=== PATIENT | female | born 1930 | race African-American/Black ===

== ENCOUNTER 2017-02-25 12:41 | Inpatient (IN) | payer MEDICARE, BC ==
[~2017-02-25] VITALS: Ht 152.4 cm; Wt 73.0 kg
[2017-02-25 13:17] LABS: BILIRUBIN,URINE NEGATIVE (NEG); GLUCOSE,URINE NEGATIVE (NEG); NITRITE,URINE NEGATIVE (NEG); PROTEIN,URINE NEGATIVE (NEG-TRACE); UROBILINOGEN,URINE 0.2 mg/dL (0.2 mg/dL)
[2017-02-25 13:38] LABS: BACTERIA,URINE 0 /HPF (0-FEW); SQUAMOUS EPITHELIAL CELL,UR MOD /LPF
--- NOTE | 2017-02-25 13:47 | PHYS DOC ---
Past Medical History Past Medical History: Dementia, GERD, Hypertension, Hypothyroid Past Surgical History: Hysterectomy, Tubal ligation, Other Additional Past Surgical Histo: THYROID SX x3, BILATERAL KNEE SX Alcohol Use: Occasionally Drug Use: None Adult General Chief Complaint Chief Complaint: ALTERED MENTAL STATUS HPI HPI Patient is a 86 year old female who presents to the emergency department for evaluation after having a possible syncopal episode. Immediately prior to arrival, the patient was found by staff to be unresponsive in her room. The patient initially did not respond to deep sternal rub for a few minutes, then staff notes that the patient was able to finally rales and initially had slurred speech. This resolved after they had called EMS who came to the patient' s room and found the patient slightly lethargic. By the time the patient arrived to the emergency department she is back at her baseline mental status. Of note, staff had found a small empty bottle of vodka next to the patient's room. The patient however has been awake and has been noted at her baseline mental status early this morning and even spoke with family approximately 1 hour prior to being found unresponsive. Patient is able to ambulate independently at baseline. The patient states that she drank the bottle of vodka last night which she states is usual for her and patient denies having any alcohol earlier this morning. The patient currently denies any chest pain, abdominal pain. Patient does not remember anything that led to her episode of unconsciousness. Review of Systems Review of Systems Constitutional: Denies fever or chills [] Eyes: Denies change in visual acuity, redness, or eye pain [] HENT: Denies nasal congestion or sore throat [] Respiratory: Denies cough or shortness of breath [] Cardiovascular: Syncope, denies chest pain or edema[] GI: Denies abdominal pain, nausea, vomiting, bloody stools or diarrhea [] : Denies dysuria or hematuria [] Musculoskeletal: Denies back pain or joint pain [] Integument: Denies rash or skin lesions [] Neurologic: Denies headache, focal weakness or sensory changes [] All other systems were reviewed and found to be within normal limits, except as documented in this note. Current Medications Current Medications Current Medications Medications (Trade) Dose Ordered Sig/Saúl Start Time Stop Time Status Last Admin Dose Admin Amlodipine Besylate (Norvasc) 5 mg 1X ONCE 02/25/17 14:15 02/25/17 14:16 DC 02/25/17 14:26 5 MG Allergies Allergies Allergies Coded Allergies Type Severity Reaction Last Updated Verified No Known Drug Allergies 02/25/17 No Physical Exam Physical Exam Constitutional: Well developed, well nourished, no acute distress, non-toxic appearance. [] HENT: Normocephalic, atraumatic, bilateral external ears normal, oropharynx moist, no oral exudates, nose normal. [] Eyes: PERRLA, EOMI, conjunctiva normal, no discharge. [] Neck: Normal range of motion, no tenderness, supple, no stridor. [] Cardiovascular:Heart rate regular rhythm, no murmur [] Lungs & Thorax: Bilateral breath sounds clear to auscultation [] Abdomen: Bowel sounds normal, soft, no tenderness, no masses, no pulsatile masses. [] Skin: Warm, dry, no erythema, no rash. [] Back: No tenderness, no CVA tenderness. [] Extremities: No tenderness, no cyanosis, no clubbing, ROM intact, no edema. [] Neurologic: Alert and oriented X 3, normal motor function, normal sensory function, no focal deficits noted. [] Current Patient Data Vital Signs Vital Signs Date Time Temp Pulse Resp B/P (MAP) Pulse Ox O2 Delivery O2 Flow Rate FiO2 02/25/17 14:54 92 20 95 02/25/17 14:26 169/79 02/25/17 12:53 97.6 Room Air 97.6 Lab Values Laboratory Tests Test 02/25/17 13:00 02/25/17 14:15 Urine Collection Type Unknown Urine Color Yellow Urine Clarity Clear Urine pH 7.0 Urine Specific [place] 1.010 Urine Protein Negative mg/dL (NEG-TRACE) Urine Glucose (UA) Negative mg/dL (NEG) Urine Ketones (Stick) Negative mg/dL (NEG) Urine Blood Negative (NEG) Urine Nitrite Negative (NEG) Urine Bilirubin Negative (NEG) Urine Urobilinogen Dipstick 0.2 mg/dL (0.2 mg/dL) Urine Leukocyte Esterase Negative (NEG) Urine RBC 1-2 /HPF (0-2) Urine WBC 1-4 /HPF (0-4) Urine Squamous Epithelial Cells Mod /LPF Urine Bacteria 0 /HPF (0-FEW) Urine Opiates Screen Neg (NEG) Urine Methadone Screen Neg (NEG) Urine Barbiturates Neg (NEG) Urine Phencyclidine Screen Neg (NEG) Urine Amphetamine/Methamphetamine Neg (NEG) Urine Benzodiazepines Screen Neg (NEG) Urine Cocaine Screen Neg (NEG) Urine Cannabinoids Screen Neg (NEG) Urine Ethyl Alcohol Neg (NEG) White Blood Count 8.9 x10^3/uL (4.0-11.0) Red Blood Count 5.08 x10^6/uL (3.50-5.40) Hemoglobin 13.6 g/dL (12.0-15.5) Hematocrit 43.0 % (36.0-47.0) Mean Corpuscular Volume 85 fL (79-100) Mean Corpuscular Hemoglobin 27 pg (25-35) Mean Corpuscular Hemoglobin Concent 32 g/dL (31-37) Red Cell Distribution Width 17.2 % (11.5-14.5) H Platelet Count 255 x10^3/uL (140-400) Neutrophils (%) (Auto) 61 % (31-73) Lymphocytes (%) (Auto) 29 % (24-48) Monocytes (%) (Auto) 8 % (0-9) Eosinophils (%) (Auto) 1 % (0-3) Basophils (%) (Auto) 1 % (0-3) Neutrophils # (Auto) 5.4 x10^3uL (1.8-7.7) Lymphocytes # (Auto) 2.6 x10^3/uL (1.0-4.8) Monocytes # (Auto) 0.7 x10^3/uL (0.0-1.1) Eosinophils # (Auto) 0.1 x10^3/uL (0.0-0.7) Basophils # (Auto) 0.1 x10^3/uL (0.0-0.2) Sodium Level 141 mmol/L (136-145) Potassium Level 3.5 mmol/L (3.5-5.1) Chloride Level 101 mmol/L (98-107) Carbon Dioxide Level 29 mmol/L (21-32) Anion Gap 11 (6-14) Blood Urea Nitrogen 24 mg/dL (7-20) H Creatinine 1.4 mg/dL (0.6-1.0) H Estimated GFR (Cockcroft-Gault) 43.2 BUN/Creatinine Ratio 17 (6-20) Glucose Level 100 mg/dL (70-99) H Calcium Level 9.1 mg/dL (8.5-10.1) Magnesium Level 2.1 mg/dL (1.8-2.4) Total Bilirubin 0.4 mg/dL (0.2-1.0) Aspartate Amino Transferase (AST) 21 U/L (15-37) Alanine Aminotransferase (ALT) 16 U/L (14-59) Alkaline Phosphatase 80 U/L (46-116) Creatine Kinase 78 U/L (26-192) Creatine Kinase MB (Mass) 0.9 ng/mL (0.0-3.6) Creatine Kinase MB Relative Index 1.2 % (0-4) Troponin I Quantitative < 0.017 ng/mL (0.000-0.055) SL-Mwo-K-Type Natriuretic Peptide 227 pg/mL (0-449) Total Protein 7.8 g/dL (6.4-8.2) Albumin 3.6 g/dL (3.4-5.0) Albumin/Globulin Ratio 0.9 (1.0-1.7) L Ethyl Alcohol Level < 10 mg/dL (0-10) Laboratory Tests 02/25/17 14:15 Laboratory Tests 02/25/17 14:15 EKG EKG Interpreted by me: Heart rate 86, sinus rhythm, left axis deviation, no acute ST elevations or depressions[] Radiology/Procedures Radiology/Procedures [facility] [address] [place] [address] IMAGING REPORT Signed PATIENT: LACI COY ACCOUNT: [id number] : 1930 LOCATION: ER AGE: 86 SEX: F EXAM STATUS: REG ER ORD. PHYSICIAN: LAURA GRIGGS MD REASON: syncope of unknown cause PROCEDURE: CT HEAD WO CONTRAST Indication: Syncope. Axial imaging through the brain was performed without contrast. The ventricles and sulci are consistent with the patient's age. Moderate periventricular hypodensity is noted consistent with senescent change. No sulcal effacement, midline shift or hemorrhage is seen. The cisterns are patent. Visualized paranasal sinuses are clear. Impression: Senescent changes. No acute intracranial process is detected. PQRS Compliance Statement: One or more of the following individualized dose reduction techniques were utilized for this examination: 1. Automated exposure control 2. Adjustment of the mA and/or kV according to patient size 3. Use of iterative reconstruction technique DICTATED and SIGNED BY: ENZO LAMA MD DATE: 02/25/17 7888 CC: LAURA GRIGGS MD; AUGUST ZAMBRANO ~ [facility] [address] [place] [address] IMAGING REPORT Signed PATIENT: LACI COY ACCOUNT: [id number] : 1930 LOCATION: ER AGE: 86 SEX: F EXAM STATUS: REG ER ORD. PHYSICIAN: LAURA GRIGGS MD REASON: syncope PROCEDURE: PORTABLE CHEST 1V Portable chest, 02/25/2017: History: Syncope Comparison is made to a study from 10/23/2005. The heart is mildly enlarged. There is calcific plaquing and tortuosity of the aorta. There is unchanged widening of the superior mediastinum on the right with an impression upon the right side of the trachea at the thoracic inlet. 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 Surgical clips are present in the thyroid region on the left. The pulmonary vascularity is normal. There is mild bilateral linear parenchymal scarring. No acute infiltrate is seen. There is no evidence of pleural fluid. There is mild chronic elevation of the right hemidiaphragm. There is a mild thoracic scoliosis. Degenerative changes are present both shoulders. IMPRESSION: 1. Cardiomegaly and aortic atherosclerosis. 2. Unchanged superior mediastinal widening of the right due to the patient's known goiter. 3. No acute cardiopulmonary abnormality is detected. DICTATED and SIGNED BY: JOSE GARCIA MD DATE: 02/25/17 1536 CC: LAURA GRIGGS MD; AUGUST ZAMBRANO ~ [] Course & Med Decision Making Course & Med Decision Making Pertinent Labs and Imaging studies reviewed. (See chart for details) The patient's blood work and radiographic imaging showed no clear etiology for the patient's episode. Due to patient's age and risk factors in addition to significantly elevated hypertension, the patient will need admission to the hospital for continued evaluation as well as treatment of blood pressure. The patient was started on oral Norvasc in the emergency department. I spoke with Dr. Lechuga who accepted care patient in hospital. A consult was placed to Dr. Mills to follow with patient in hospital. Dragon Disclaimer Dragon Disclaimer This electronic medical record was generated, in whole or in part, using a voice recognition dictation system. Departure Departure Impression: Primary Impression: Syncope Additional Impression: Accelerated hypertension Disposition: 09 ADMITTED INPATIENT Admitting Physician: Donna Lechuga Condition: GUARDED Problem Qualifiers Primary Impression: Syncope Syncope type: unspecified Qualified Codes: R55 - Syncope and collapse LAURA GRIGGS MD Feb 25, 2017 13:47
[2017-02-25 14:04] LABS: BARBITURATES NEG (NEG); BENZODIAZEPINES NEG (NEG); CANNABINOIDS NEG (NEG); COCAINE NEG (NEG); METHADONE NEG (NEG); OPIATES NEG (NEG); PHENCYCLIDINE NEG (NEG)
[2017-02-25] MEDS ORDERED: amLODIPine BESYLATE 5 MG TABLET PO ONE (14:15)
[2017-02-25 14:25] LABS: BASO # 0.1 x10^3/uL (0.0-0.2); BASO % 1 % (0-3); EOS % 1 % (0-3); HEMOGLOBIN 13.6 g/dL (12.0-15.5); LYMPH # 2.6 x10^3/uL (1.0-4.8); LYMPH % 29 % (24-48); MEAN CORPUSCULAR HEMOGLOBIN 27 pg (25-35); MEAN CORPUSCULAR HGB CONC 32 g/dL (31-37); MEAN CORPUSCULAR VOLUME 85 fL (79-100); MONO % 8 % (0-9); NEUT % 61 % (31-73); PLATELET COUNT 255 x10^3/uL (140-400); RED BLOOD COUNT 5.08 x10^6/uL (3.50-5.40); RED CELL DISTRIBUTION WIDTH 17.2 % (11.5-14.5); WHITE BLOOD COUNT 8.9 x10^3/uL (4.0-11.0)
[2017-02-25 14:36] LABS: CALCIUM 9.1 mg/dL (8.5-10.1); CREATININE 1.4 mg/dL (0.6-1.0); GFR 43.2; POTASSIUM 3.5 mmol/L (3.5-5.1)
[2017-02-25 14:43] LABS: ALBUMIN 3.6 g/dL (3.4-5.0); ALBUMIN/GLOBULIN RATIO 0.9 (1.0-1.7); MAGNESIUM 2.1 mg/dL (1.8-2.4); TOTAL BILIRUBIN 0.4 mg/dL (0.2-1.0); TOTAL PROTEIN 7.8 g/dL (6.4-8.2)
--- NOTE | 2017-02-25 14:49 | EKG ---
[facility] [address] [place] [address] Test Date: 2017-02-25 Test Time: 14:12:00 Pat Name: LACI COY Department: Room: Gender: F Exhibit Electrician: ABIGAIL : 1930 Requested By: LAURA GRIGGS Order Number: [id number] Reading MD: Jose Romero MD Measurements Intervals [place] Rate: 86 P: -63 IN: 122 QRS: -51 QRSD: 100 T: 65 QT: 370 QTc: 446 Interpretive Statements SUSPECT SR LAFB POOR R-WAVE PROGRESSION Electronically Signed On 03-06-2017 16:04:03 LABEL SEWER by Jose Romero MD
[2017-02-25 14:52] LABS: CKMB MASS 0.9 ng/mL (0.0-3.6)
--- NOTE | 2017-02-25 15:09 | RAD ---
Indication: Syncope. Axial imaging through the brain was performed without contrast. The ventricles and sulci are consistent with the patient's age. Moderate periventricular hypodensity is noted consistent with senescent change. No sulcal effacement, midline shift or hemorrhage is seen. The cisterns are patent. Visualized paranasal sinuses are clear. Impression: Senescent changes. No acute intracranial process is detected. PQRS Compliance Statement: One or more of the following individualized dose reduction techniques were utilized for this examination: 1. Automated exposure control 2. Adjustment of the mA and/or kV according to patient size 3. Use of iterative reconstruction technique
--- NOTE | 2017-02-25 15:15 | RAD ---
Portable chest, 02/25/2017: History: Syncope Comparison is made to a study from 10/23/2005. The heart is mildly enlarged. There is calcific plaquing and tortuosity of the aorta. There is unchanged widening of the superior mediastinum on the right with an impression upon the right side of the trachea at the thoracic inlet. 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 Surgical clips are present in the thyroid region on the left. The pulmonary vascularity is normal. There is mild bilateral linear parenchymal scarring. No acute infiltrate is seen. There is no evidence of pleural fluid. There is mild chronic elevation of the right hemidiaphragm. There is a mild thoracic scoliosis. Degenerative changes are present both shoulders. IMPRESSION: 1. Cardiomegaly and aortic atherosclerosis. 2. Unchanged superior mediastinal widening of the right due to the patient's known goiter. 3. No acute cardiopulmonary abnormality is detected.
[2017-02-25] MEDS ORDERED: ACETAMINOPHEN 325 MG TABLET. PO PRN (15:45)
[2017-02-25] MEDS ORDERED: ONDANSETRON PF 4 MG/2 ML VIAL. IV PRN ×2 (15:45→16:00)
[2017-02-25] MEDS ORDERED: diphenhydrAMINE HCL 25 MG CAPSULE PO PRN (16:00)
[2017-02-25] MEDS ORDERED: LABETALOL 20 MG/4 ML DISP.SYRIN. IVP PRN (16:00)
[2017-02-25] MEDS ORDERED: HYDROcodone/APAP 5/325MG 1 TAB TABLET PO PRN (16:00)
[2017-02-25 16:24] VITALS: BP 164/81
--- NOTE | 2017-02-25 16:47 | PDOC1 ---
History and Physical Date of Admission Date of Admission DATE: 02/25/17 TIME: 16:42 Identification/Chief Complaint Chief Complaint syncope in HCR Problems: Source Source: Caregiver, Chart review, Patient History of Present Illness History of Present Illness 86 yr old -[place] female who actually has very good ADLs and IADLs given for stated age, rehabbing at [facility] is about to discharge soon back to her own home. Was found in her room unresponsive to sternal rub her. No mention of hypoglycemia or any other altered labs at that time. Patient denies eating anything different prior to the episode. She does not currently remember details. All she knows that she was watching TV waiting for her right to go to some class activities during the day. The next thing she realizes that she is on her way to the hospital. There was no seizure-like activity, no noted bladder or stool incontinence on the scene. Labs here unremarkable except for slight creatinine 1.4 with a GFR of 43. Chest x-ray CT had otherwise unremarkable. Patient is admitted observation overnight to make sure no arrhythmias overnight given his age. Her only past medical history is hypothyroidism status post thyroidectomy on Synthroid and hypertension on unrecalled blood pressure pills. Past Medical History Cardiovascular: HTN Endocrine: Hypothyroidism Past Surgical History Past Surgical History: Other (thyroidectomy) Family History Family History: Family History Unknown Social History Smoke: No ALCOHOL: none Drugs: None Current Problem List Problem List Problems Medical Problems: (1) Accelerated hypertension Status: Acute (2) Syncope Status: Acute Problems: Current Medications Current Medications Current Medications Amlodipine Besylate (Norvasc) 5 mg 1X ONCE PO Last administered on 02/25/17t 14:26; Start 02/25/17 at 14:15; Stop 02/25/17 at 14:16; Status DC Ondansetron HCl (Zofran) 4 mg PRN Q8HRS PRN IV NAUSEA/VOMITING; Start 02/25/17 at 15:45; Stop 02/25/17 at 15:47; Status DC Acetaminophen (Tylenol) 650 mg PRN Q4HRS PRN PO FEVER; Start 02/25/17 at 15:45 ; Stop 02/26/17 at 15:44 Ondansetron HCl (Zofran) 4 mg PRN Q6HRS PRN IV NAUSEA/VOMITING; Start 02/25/17 at 16:00; Stop 02/26/17 at 15:59 Labetalol HCl (Normodyne) 10 mg PRN Q2HR PRN IVP HYPERTENSION, SEE COMMENTS; Start 02/25/17 at 16:00 Acetaminophen/ Hydrocodone Bitart (Lortab 5/325) 1 tab PRN Q4HRS PRN PO PAIN; Start 02/25/17 at 16:00 Diphenhydramine HCl (Benadryl) 25 mg PRN QHS PRN PO INSOMNIA; Start 02/25/17 at 16:00 Allergies Allergies: Coded Allergies: No Known Drug Allergies (Unverified , 02/25/17) ROS Review of System A 14 point ROS was completed with the following noted as positive: Other systems reviewed and negative. \CONSTITUTIONAL: No fever or chills EYES: No recent changes SKIN: No rash or itching CARDIOVASCULAR: No chest pain, syncope, palpitations, or edema RESPIRATORY: No SOB or cough GASTROINTESTINAL: No nausea, vomiting or abdominal pain NEUROLOGICAL: No headaches or weakness ENDOCRINE: No cold or heat intolerance GENITOURINARY: No urgency or frequency of urination MUSCULOSKELETAL: No back pain or joint pain LYMPHATICS: No enlarged lymph nodes PSYCHIATRIC: No anxiety or depression Physical Exam Physical Exam Physical Exam General: Alert, Oriented X3, Cooperative, No acute distress HEENT: Atraumatic, PERRLA Lungs: Normal air movement, Other (wheezy) Heart: S1S2, RRR, no thrills, no gallops, no murmurs Cardiovascular: S1, S2 Abdomen: Normal bowel sounds, Soft, No tenderness, No hepatosplenomegaly, No masses, Other (obese) Rectal Exam: not examined PELVIC: Nml ext genitalia Extremities: No rashes, no edema, pulses full and equal Skin: No rashes, No breakdown, No significant lesion Neuro: Normal gait, Normal speech, Strength at 5/5 X4 ext, Normal tone, Sensation intact, Cranial nerves 3-12 NL, Reflexes 2+ Psych/Mental Status: Mental status NL, Mood NL Vitals Vitals Vital Signs Date Time Temp Pulse Resp B/P (MAP) Pulse Ox O2 Delivery O2 Flow Rate FiO2 02/25/17 16:24 98.4 86 19 164/81 (108) 96 Room Air 98.4 Labs Labs Laboratory Tests Test 02/25/17 13:00 02/25/17 14:15 Urine Collection Type Unknown Urine Color Yellow Urine Clarity Clear Urine pH 7.0 Urine Specific [place] 1.010 Urine Protein Negative mg/dL (NEG-TRACE) Urine Glucose (UA) Negative mg/dL (NEG) Urine Ketones (Stick) Negative mg/dL (NEG) Urine Blood Negative (NEG) Urine Nitrite Negative (NEG) Urine Bilirubin Negative (NEG) Urine Urobilinogen Dipstick 0.2 mg/dL (0.2 mg/dL) Urine Leukocyte Esterase Negative (NEG) Urine RBC 1-2 /HPF (0-2) Urine WBC 1-4 /HPF (0-4) Urine Squamous Epithelial Cells Mod /LPF Urine Bacteria 0 /HPF (0-FEW) Urine Opiates Screen Neg (NEG) Urine Methadone Screen Neg (NEG) Urine Barbiturates Neg (NEG) Urine Phencyclidine Screen Neg (NEG) Urine Amphetamine/Methamphetamine Neg (NEG) Urine Benzodiazepines Screen Neg (NEG) Urine Cocaine Screen Neg (NEG) Urine Cannabinoids Screen Neg (NEG) Urine Ethyl Alcohol Neg (NEG) White Blood Count 8.9 x10^3/uL (4.0-11.0) Red Blood Count 5.08 x10^6/uL (3.50-5.40) Hemoglobin 13.6 g/dL (12.0-15.5) Hematocrit 43.0 % (36.0-47.0) Mean Corpuscular Volume 85 fL (79-100) Mean Corpuscular Hemoglobin 27 pg (25-35) Mean Corpuscular Hemoglobin Concent 32 g/dL (31-37) Red Cell Distribution Width 17.2 % (11.5-14.5) Platelet Count 255 x10^3/uL (140-400) Neutrophils (%) (Auto) 61 % (31-73) Lymphocytes (%) (Auto) 29 % (24-48) Monocytes (%) (Auto) 8 % (0-9) Eosinophils (%) (Auto) 1 % (0-3) Basophils (%) (Auto) 1 % (0-3) Neutrophils # (Auto) 5.4 x10^3uL (1.8-7.7) Lymphocytes # (Auto) 2.6 x10^3/uL (1.0-4.8) Monocytes # (Auto) 0.7 x10^3/uL (0.0-1.1) Eosinophils # (Auto) 0.1 x10^3/uL (0.0-0.7) Basophils # (Auto) 0.1 x10^3/uL (0.0-0.2) Sodium Level 141 mmol/L (136-145) Potassium Level 3.5 mmol/L (3.5-5.1) Chloride Level 101 mmol/L (98-107) Carbon Dioxide Level 29 mmol/L (21-32) Anion Gap 11 (6-14) Blood Urea Nitrogen 24 mg/dL (7-20) Creatinine 1.4 mg/dL (0.6-1.0) Estimated GFR (Cockcroft-Gault) 43.2 BUN/Creatinine Ratio 17 (6-20) Glucose Level 100 mg/dL (70-99) Calcium Level 9.1 mg/dL (8.5-10.1) Magnesium Level 2.1 mg/dL (1.8-2.4) Total Bilirubin 0.4 mg/dL (0.2-1.0) Aspartate Amino Transf (AST/SGOT) 21 U/L (15-37) Alanine Aminotransferase (ALT/SGPT) 16 U/L (14-59) Alkaline Phosphatase 80 U/L (46-116) Creatine Kinase 78 U/L (26-192) Creatine Kinase MB (Mass) 0.9 ng/mL (0.0-3.6) Creatine Kinase MB Relative Index 1.2 % (0-4) Troponin I Quantitative < 0.017 ng/mL (0.000-0.055) [id number]-[id number]-Type Natriuretic Peptide 227 pg/mL (0-449) Total Protein 7.8 g/dL (6.4-8.2) Albumin 3.6 g/dL (3.4-5.0) Albumin/Globulin Ratio 0.9 (1.0-1.7) Ethyl Alcohol Level < 10 mg/dL (0-10) Laboratory Tests Test 02/25/17 13:00 02/25/17 14:15 Urine Collection Type Unknown Urine Color Yellow Urine Clarity Clear Urine pH 7.0 Urine Specific [place] 1.010 Urine Protein Negative mg/dL (NEG-TRACE) Urine Glucose (UA) Negative mg/dL (NEG) Urine Ketones (Stick) Negative mg/dL (NEG) Urine Blood Negative (NEG) Urine Nitrite Negative (NEG) Urine Bilirubin Negative (NEG) Urine Urobilinogen Dipstick 0.2 mg/dL (0.2 mg/dL) Urine Leukocyte Esterase Negative (NEG) Urine RBC 1-2 /HPF (0-2) Urine WBC 1-4 /HPF (0-4) Urine Squamous Epithelial Cells Mod /LPF Urine Bacteria 0 /HPF (0-FEW) Urine Opiates Screen Neg (NEG) Urine Methadone Screen Neg (NEG) Urine Barbiturates Neg (NEG) Urine Phencyclidine Screen Neg (NEG) Urine Amphetamine/Methamphetamine Neg (NEG) Urine Benzodiazepines Screen Neg (NEG) Urine Cocaine Screen Neg (NEG) Urine Cannabinoids Screen Neg (NEG) Urine Ethyl Alcohol Neg (NEG) White Blood Count 8.9 x10^3/uL (4.0-11.0) Red Blood Count 5.08 x10^6/uL (3.50-5.40) Hemoglobin 13.6 g/dL (12.0-15.5) Hematocrit 43.0 % (36.0-47.0) Mean Corpuscular Volume 85 fL (79-100) Mean Corpuscular Hemoglobin 27 pg (25-35) Mean Corpuscular Hemoglobin Concent 32 g/dL (31-37) Red Cell Distribution Width 17.2 % (11.5-14.5) Platelet Count 255 x10^3/uL (140-400) Neutrophils (%) (Auto) 61 % (31-73) Lymphocytes (%) (Auto) 29 % (24-48) Monocytes (%) (Auto) 8 % (0-9) Eosinophils (%) (Auto) 1 % (0-3) Basophils (%) (Auto) 1 % (0-3) Neutrophils # (Auto) 5.4 x10^3uL (1.8-7.7) Lymphocytes # (Auto) 2.6 x10^3/uL (1.0-4.8) Monocytes # (Auto) 0.7 x10^3/uL (0.0-1.1) Eosinophils # (Auto) 0.1 x10^3/uL (0.0-0.7) Basophils # (Auto) 0.1 x10^3/uL (0.0-0.2) Sodium Level 141 mmol/L (136-145) Potassium Level 3.5 mmol/L (3.5-5.1) Chloride Level 101 mmol/L (98-107) Carbon Dioxide Level 29 mmol/L (21-32) Anion Gap 11 (6-14) Blood Urea Nitrogen 24 mg/dL (7-20) Creatinine 1.4 mg/dL (0.6-1.0) Estimated GFR (Cockcroft-Gault) 43.2 BUN/Creatinine Ratio 17 (6-20) Glucose Level 100 mg/dL (70-99) Calcium Level 9.1 mg/dL (8.5-10.1) Magnesium Level 2.1 mg/dL (1.8-2.4) Total Bilirubin 0.4 mg/dL (0.2-1.0) Aspartate Amino Transf (AST/SGOT) 21 U/L (15-37) Alanine Aminotransferase (ALT/SGPT) 16 U/L (14-59) Alkaline Phosphatase 80 U/L (46-116) Creatine Kinase 78 U/L (26-192) Creatine Kinase MB (Mass) 0.9 ng/mL (0.0-3.6) Creatine Kinase MB Relative Index 1.2 % (0-4) Troponin I Quantitative < 0.017 ng/mL (0.000-0.055) KY-Mok-G-Type Natriuretic Peptide 227 pg/mL (0-449) Total Protein 7.8 g/dL (6.4-8.2) Albumin 3.6 g/dL (3.4-5.0) Albumin/Globulin Ratio 0.9 (1.0-1.7) Ethyl Alcohol Level < 10 mg/dL (0-10) VTE Prophylaxis Ordered VTE Prophylaxis Devices: Yes VTE Pharmacological Prophylaxi: Yes Assessment/Plan Assessment/Plan assessment Syncope, unclear etiology Hypothyroidism on Synthroid Hypertension otherwise controlled plan of care: Check orthostatics Admit observation, hook to telemetry Consulted cardiology at ER level Will likely need at least an echo make sure heart is okay Resume home meds, further recommendations pending above course Discussed with daughters at bedside OBS NIKO NAJERA MD Feb 25, 2017 16:47
[2017-02-25 19:00] VITALS: BP 165/97
[2017-02-25 23:00] VITALS: BP 166/83
[2017-02-26 03:00] VITALS: BP 155/79
[2017-02-26 03:39] LABS: BASO # 0.1 x10^3/uL (0.0-0.2); BASO % 1 % (0-3); EOS % 2 % (0-3); HEMATOCRIT 39.4 % (36.0-47.0); HEMOGLOBIN 12.6 g/dL (12.0-15.5); LYMPH # 1.9 x10^3/uL (1.0-4.8); LYMPH % 24 % (24-48); MEAN CORPUSCULAR HEMOGLOBIN 27 pg (25-35); MEAN CORPUSCULAR HGB CONC 32 g/dL (31-37); MEAN CORPUSCULAR VOLUME 84 fL (79-100); MONO % 9 % (0-9); NEUT % 65 % (31-73); PLATELET COUNT 248 x10^3/uL (140-400); RED BLOOD COUNT 4.66 x10^6/uL (3.50-5.40); RED CELL DISTRIBUTION WIDTH 16.6 % (11.5-14.5)
[2017-02-26 03:51] LABS: CALCIUM 8.4 mg/dL (8.5-10.1); CREATININE 1.5 mg/dL (0.6-1.0); GFR 39.9; POTASSIUM 3.2 mmol/L (3.5-5.1)
[2017-02-26 07:00] VITALS: BP 146/68
--- NOTE | 2017-02-26 10:08 | PDOC2 ---
YARI PEREA SHEEP BONER 02/26/17 1008: CARDIAC CONSULT DATE OF CONSULT Date of Consult DATE: 02/26/17 TIME: 09:51 REASON FOR CONSULT Reason for Consult: syncope REFERRING PHYSICIAN Referring Physician: marci SOURCE Source: Chart review, Patient HISTORY OF PRESENT ILLNESS HISTORY OF PRESENT ILLNESS This is a pleasant 86 yo female admitted for complains of possibly passing out. P reports that she was waiting for her ride witting up when she was noted to be unresponsive. It was unclear about the duration of unresponsiveness but she told me that there were no presyncopal events . Denies any nausea, vomiting, CP , SOA, palpitations. No visual or auditory impairment and no facial tingling or droop or slurred speech. No bowel or bladder incontinence. In the last few weeks she has been doing well with no complains of FITCH or exertional CP nor palpitations. No known CAD, VTE, CVA or arrhythmias in the past. She came from [facility]. She drinks about 3-4 shots of vodka a night about 4x weekly and she has been doing this for a while to help with her sleep. PAST MEDICAL HISTORY Cardiovascular: HTN Pulmonary: COPD CENTRAL NERVOUS SYSTEM: Dementia GI: GERD Heme/Onc: No pertinent hx Hepatobiliary: No pertinent hx Psych: No pertinent hx, Other (alcoholism) Musculoskeletal: Osteoarthritis Rheumatologic: No pertinent hx Infectious disease: No pertinent hx ENT: No pertinent hx Renal/: Urinary Incontinence Endocrine: Hypothyroidism Dermatology: No pertinent hx PAST SURGICAL HISTORY Past Surgical History: Total knee replacement (bilateral), Hysterectomy, Other (thyroidectomy) FAMILY HISTORY Family History noncontributory SOCIAL HISTORY Smoke: Quit (20 pk yr) ALCOHOL: heavy Drugs: None [facility]: [facility] CURRENT MEDICATIONS CURRENT MEDICATIONS Current Medications Medications (Trade) Dose Ordered Sig/Saúl Route PRN Reason Start Time Stop Time Status Last Admin Dose Admin Amlodipine Besylate (Norvasc) 5 mg 1X ONCE PO 02/25/17 14:15 02/25/17 14:16 DC 02/25/17 14:26 ALLERGIES ALLERGIES: Coded Allergies: No Known Drug Allergies (Unverified , 02/25/17) ROS Review of System 14 point ROS evaluated with pertinent positives noted per HPI PHYSICAL EXAM General: Alert, Oriented X3, Cooperative HEENT: Atraumatic, Mucous membr. moist/pink Lungs: Clear to auscultation, Normal air movement Heart: Regular rate (SR), Normal S1, Normal S2, Other (2/6 systolic murmur to LLS border) Abdomen: Soft, No tenderness Extremities: No cyanosis, No edema Skin: No breakdown, No significant lesion Neuro: Normal speech, Sensation intact Psych/Mental Status: Mental status NL, Mood NL MUSCULOSKELETAL: Osteoarthritic changes both hands VITALS VITALS Vital Signs Date Time Temp Pulse Resp B/P (MAP) Pulse Ox O2 Delivery O2 Flow Rate FiO2 02/26/17 07:00 98.1 69 20 146/68 (94) 98 Room Air 98.1 LABS Lab: Laboratory Tests Test 02/25/17 13:00 02/25/17 14:15 02/26/17 03:00 Urine Collection Type Unknown Urine Color Yellow Urine Clarity Clear Urine pH 7.0 Urine Specific [place] 1.010 Urine Protein Negative mg/dL (NEG-TRACE) Urine Glucose (UA) Negative mg/dL (NEG) Urine Ketones (Stick) Negative mg/dL (NEG) Urine Blood Negative (NEG) Urine Nitrite Negative (NEG) Urine Bilirubin Negative (NEG) Urine Urobilinogen Dipstick 0.2 mg/dL (0.2 mg/dL) Urine Leukocyte Esterase Negative (NEG) Urine RBC 1-2 /HPF (0-2) Urine WBC 1-4 /HPF (0-4) Urine Squamous Epithelial Cells Mod /LPF Urine Bacteria 0 /HPF (0-FEW) Urine Opiates Screen Neg (NEG) Urine Methadone Screen Neg (NEG) Urine Barbiturates Neg (NEG) Urine Phencyclidine Screen Neg (NEG) Urine Amphetamine/Methamphetamine Neg (NEG) Urine Benzodiazepines Screen Neg (NEG) Urine Cocaine Screen Neg (NEG) Urine Cannabinoids Screen Neg (NEG) Urine Ethyl Alcohol Neg (NEG) White Blood Count 8.9 x10^3/uL (4.0-11.0) 8.0 x10^3/uL (4.0-11.0) Red Blood Count 5.08 x10^6/uL (3.50-5.40) 4.66 x10^6/uL (3.50-5.40) Hemoglobin 13.6 g/dL (12.0-15.5) 12.6 g/dL (12.0-15.5) Hematocrit 43.0 % (36.0-47.0) 39.4 % (36.0-47.0) Mean Corpuscular Volume 85 fL (79-100) 84 fL (79-100) Mean Corpuscular Hemoglobin 27 pg (25-35) 27 pg (25-35) Mean Corpuscular Hemoglobin Concent 32 g/dL (31-37) 32 g/dL (31-37) Red Cell Distribution Width 17.2 % (11.5-14.5) 16.6 % (11.5-14.5) Platelet Count 255 x10^3/uL (140-400) 248 x10^3/uL (140-400) Neutrophils (%) (Auto) 61 % (31-73) 65 % (31-73) Lymphocytes (%) (Auto) 29 % (24-48) 24 % (24-48) Monocytes (%) (Auto) 8 % (0-9) 9 % (0-9) Eosinophils (%) (Auto) 1 % (0-3) 2 % (0-3) Basophils (%) (Auto) 1 % (0-3) 1 % (0-3) Neutrophils # (Auto) 5.4 x10^3uL (1.8-7.7) 5.1 x10^3uL (1.8-7.7) Lymphocytes # (Auto) 2.6 x10^3/uL (1.0-4.8) 1.9 x10^3/uL (1.0-4.8) Monocytes # (Auto) 0.7 x10^3/uL (0.0-1.1) 0.7 x10^3/uL (0.0-1.1) Eosinophils # (Auto) 0.1 x10^3/uL (0.0-0.7) 0.1 x10^3/uL (0.0-0.7) Basophils # (Auto) 0.1 x10^3/uL (0.0-0.2) 0.1 x10^3/uL (0.0-0.2) Sodium Level 141 mmol/L (136-145) 140 mmol/L (136-145) Potassium Level 3.5 mmol/L (3.5-5.1) 3.2 mmol/L (3.5-5.1) Chloride Level 101 mmol/L (98-107) 102 mmol/L (98-107) Carbon Dioxide Level 29 mmol/L (21-32) 30 mmol/L (21-32) Anion Gap 11 (6-14) 8 (6-14) Blood Urea Nitrogen 24 mg/dL (7-20) 24 mg/dL (7-20) Creatinine 1.4 mg/dL (0.6-1.0) 1.5 mg/dL (0.6-1.0) Estimated GFR (Cockcroft-Gault) 43.2 39.9 BUN/Creatinine Ratio 17 (6-20) Glucose Level 100 mg/dL (70-99) 92 mg/dL (70-99) Calcium Level 9.1 mg/dL (8.5-10.1) 8.4 mg/dL (8.5-10.1) Magnesium Level 2.1 mg/dL (1.8-2.4) Total Bilirubin 0.4 mg/dL (0.2-1.0) Aspartate Amino Transf (AST/SGOT) 21 U/L (15-37) Alanine Aminotransferase (ALT/SGPT) 16 U/L (14-59) Alkaline Phosphatase 80 U/L (46-116) Creatine Kinase 78 U/L (26-192) Creatine Kinase MB (Mass) 0.9 ng/mL (0.0-3.6) Creatine Kinase MB Relative Index 1.2 % (0-4) Troponin I Quantitative < 0.017 ng/mL (0.000-0.055) PL-Oay-L-Type Natriuretic Peptide 227 pg/mL (0-449) Total Protein 7.8 g/dL (6.4-8.2) Albumin 3.6 g/dL (3.4-5.0) Albumin/Globulin Ratio 0.9 (1.0-1.7) Ethyl Alcohol Level < 10 mg/dL (0-10) ASSESSMENT/PLAN ASSESSMENT/PLAN 1. Syncope vs encephalopathy: could be induced by ETOH with likely dehydration 2. Accelerated HTN: initially SBP at 203 3. Alcoholism: 3-4 shots of vodka 4x weekly. Defer to PCP 4. Prerenal azotemia 5. Hypokalemia 6. Hypothyroidism 7. Sinus bradycardia: episodes in the 40s no pauses. On aricept 8. Dementia 9. COPD Recommendations 1. TTE today. Too much artifact on EKG, will repeat 2. TSH level. Restart home norvasc. Labetolol PRN. Banana bag x1. 3. Avoid AV niranjan blocking agents 4. Will arrange for event monitor. Replace K 5. Discussed ETOH cessation. (Supplied by outside friends) Problems: GIOVANNY DICKERSON MD 02/26/17 1705: CARDIAC CONSULT ALLERGIES ALLERGIES: Coded Allergies: No Known Drug Allergies (Unverified , 02/25/17) ASSESSMENT/PLAN ASSESSMENT/PLAN Patient seen and examined. Agree with TONE ARTIST APPRENTICE's assessment and plan. Syncope of uncertain etiology. Telemetry did not show any significant arrhythmia so far. 2-D echo showed normal LV function without any significant structural abnormalities. Blood pressure better controlled since admission. Continue intravenous hydration. Plan for event monitor as outpatient. Thank you for your consultation. Problems: YARI PEREA APRN Feb 26, 2017 10:08 GIOVANNY DICKERSON MD Feb 26, 2017 17:05
[2017-02-26 10:29] LABS: CHOLESTEROL/HDL RATIO 2.4
[2017-02-26] MEDS ORDERED: POTASSIUM CHLORIDE 20 MEQ TABLET.ER. PO ONE ×2 (10:30→11:00)
[2017-02-26] MEDS ORDERED: IV NORMAL SALINE 1000ML BAG 1,000 ML IV ONE (10:30)
[2017-02-26] MEDS ORDERED: amLODIPine BESYLATE 5 MG TABLET PO SCH (10:30)
[2017-02-26] MEDS ORDERED: MULTIVIT INFUSN,ADULT 4,VIT K 10 ML, THIAMINE 100 MG, FOLIC ACID 1 MG in IV NORMAL SALI... IV ONE (10:45)
[2017-02-26 11:00] VITALS: BP 162/76
--- NOTE | 2017-02-26 13:03 | EKG ---
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
--- NOTE | 2017-02-26 13:45 | CARD ---
APPROVED REPORT EXAM: Two-dimensional and M-mode echocardiogram with Doppler and color Doppler. Other Information Quality : AverageGood INDICATION Syncope 2D DIMENSIONS Left Atrium(2D)3.2 (1.6-4.0cm)IVSd1.3 (0.7-1.1cm) Aortic Root(2D)3.0 (2.0-3.7cm)LVDd4.9 (3.9-5.9cm) PWd1.2 (0.7-1.1cm)LVDs2.8 (2.5-4.0cm) FS (%) 42.4 %SV84.1 ml LVEF(%)73.2 (>50%) Aortic Valve AoV Peak Chris.126.6cm/sAoV VTI21.6cm AO Peak GR.6.4mmHgLVOT VTI 16.92cm AO Mean GR.3mmHgAVA (VTI)2.20cm2 Mitral Valve MV E Aumwaglo74.5cm/sMV DECEL WIHE751qi MV A Afudrqcn54.2cm/sE/A Ratio0.4 TDI Lateral E' P. V4.96cm/sMedial E' P. V9.07cm/s E/Lateral E'7.2E/Medial E'3.9 Tricuspid Valve TR P. Yurasjtt577qm/sRAP YWAQGDAW2tyFx TR Peak Gr.64tnKcKDXT36ipHm LEFT VENTRICLE The left ventricle is normal size. There is mild concentric left ventricular hypertrophy. Left ventri henok systolic function is normal. The Ejection Fraction is 55-60%. There is normal LV segmental wall m otion. Transmitral Doppler flow pattern is normal for age. Transmitral Doppler flow pattern is Grade I-abnormal relaxation pattern. RIGHT VENTRICLE The right ventricle is normal size. The right ventricular systolic function is normal. ATRIA The left atrium size is normal. The right atrium size is normal. The interatrial septum is intact wit h no evidence for an atrial septal defect or patent foramen ovale as noted on 2-D or Doppler imaging. AORTIC VALVE The aortic valve is mild to moderately calcified. Doppler and Color Flow revealed mild aortic regurgi tation. There is no significant aortic valvular stenosis. MITRAL VALVE The mitral valve is calcified but opens well. There is no evidence of mitral valve prolapse. There is no mitral valve stenosis. Doppler and Color-flow revealed trace mitral regurgitation. TRICUSPID VALVE The tricuspid valve is normal in structure. Doppler and Color Flow revealed mild tricuspid regurgitat ion. The PA pressure was estimated at 30 mmHg. There is no tricuspid valve prolapse or vegetation. Th ere is no tricuspid valve stenosis. PULMONIC VALVE The pulmonary valve is normal in structure and function. Doppler and Color Flow revealed no pulmonic valvular regurgitation. There is no pulmonic valvular stenosis. GREAT VESSELS The aortic root is normal in size. The ascending aorta is normal in size. The IVC is normal in size a nd collapses >50% with inspiration. PERICARDIAL EFFUSION There is no pleural effusion. There is no evidence of significant pericardial effusion. Critical Notification Critical Value: No <Conclusion> The left ventricle is normal size. Left ventricle systolic function is normal. The Ejection Fraction is 55-60%. There is mild concentric left ventricular hypertrophy. There is no significant aortic valvular stenosis. Doppler and Color Flow revealed mild aortic regurgitation. Doppler and Color-flow revealed trace mitral regurgitation. Doppler and Color Flow revealed mild tricuspid regurgitation. The PA pressure was estimated at 30 mmHg.
[2017-02-26 14:39] VITALS: BP 144/64
[2017-02-26] MEDS ORDERED: amLODIPine BESYLATE 5 MG TABLET PO ONE (15:30)
--- NOTE | 2017-02-26 15:44 | PDOC ---
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 II-XII grossly intact b/l General: Alert, Oriented X3, Cooperative Heart: Regular rate, Normal S1, Normal S2, Other (2/6 systolic murmur to LLS border) Lungs: Clear, Other (No wheezes or crackles) Abdomen: Normal bowel sounds, Soft, No tenderness Extremities: No cyanosis, No edema Skin: No breakdown, No significant lesion Labs LABS Laboratory Tests Test 02/26/17 03:00 White Blood Count 8.0 x10^3/uL (4.0-11.0) Red Blood Count 4.66 x10^6/uL (3.50-5.40) Hemoglobin 12.6 g/dL (12.0-15.5) Hematocrit 39.4 % (36.0-47.0) Mean Corpuscular Volume 84 fL (79-100) Mean Corpuscular Hemoglobin 27 pg (25-35) Mean Corpuscular Hemoglobin Concent 32 g/dL (31-37) Red Cell Distribution Width 16.6 % (11.5-14.5) Platelet Count 248 x10^3/uL (140-400) Neutrophils (%) (Auto) 65 % (31-73) Lymphocytes (%) (Auto) 24 % (24-48) Monocytes (%) (Auto) 9 % (0-9) Eosinophils (%) (Auto) 2 % (0-3) Basophils (%) (Auto) 1 % (0-3) Neutrophils # (Auto) 5.1 x10^3uL (1.8-7.7) Lymphocytes # (Auto) 1.9 x10^3/uL (1.0-4.8) Monocytes # (Auto) 0.7 x10^3/uL (0.0-1.1) Eosinophils # (Auto) 0.1 x10^3/uL (0.0-0.7) Basophils # (Auto) 0.1 x10^3/uL (0.0-0.2) Sodium Level 140 mmol/L (136-145) Potassium Level 3.2 mmol/L (3.5-5.1) Chloride Level 102 mmol/L (98-107) Carbon Dioxide Level 30 mmol/L (21-32) Anion Gap 8 (6-14) Blood Urea Nitrogen 24 mg/dL (7-20) Creatinine 1.5 mg/dL (0.6-1.0) Estimated GFR (Cockcroft-Gault) 39.9 Glucose Level 92 mg/dL (70-99) Calcium Level 8.4 mg/dL (8.5-10.1) Triglycerides Level 102 mg/dL (0-150) Cholesterol Level 162 mg/dL (0-200) LDL Cholesterol, Calculated 75 mg/dL (0-100) VLDL Cholesterol, Calculated 20 mg/dL (0-40) Non-HDL Cholesterol Calculated 95 mg/dL (0-129) HDL Cholesterol 67 mg/dL (40-60) Cholesterol/HDL Ratio 2.4 Thyroid Stimulating Hormone (TSH) 0.433 uIU/mL (0.358-3.74) Review of Systems Review of Systems GEN: Denies fever, chills or sweats CV: Denies chest pain Resp: Denies shortness of air GI: Denies N/V Assessment and Plan Assessmemt and Plan Problems Medical Problems: (1) Accelerated hypertension Status: Acute (2) Syncope Status: Acute Assessment: Syncope Hypothyroidism HTN COPD Dementia GERD Osteoarthritis Plan: Potassium 40 mEq ordered PO Possible d/c in AM if stable, appreciate subspecialty input Continue PT/OT Continue home medications Recheck labs in am Problems: Comment Review of Relevant I have reviewed the following items maged (where applicable) has been applied. Labs Laboratory Tests Test 02/25/17 13:00 02/25/17 14:15 02/26/17 03:00 Urine Collection Type Unknown Urine Color Yellow Urine Clarity Clear Urine pH 7.0 Urine Specific [place] 1.010 Urine Protein Negative mg/dL (NEG-TRACE) Urine Glucose (UA) Negative mg/dL (NEG) Urine Ketones (Stick) Negative mg/dL (NEG) Urine Blood Negative (NEG) Urine Nitrite Negative (NEG) Urine Bilirubin Negative (NEG) Urine Urobilinogen Dipstick 0.2 mg/dL (0.2 mg/dL) Urine Leukocyte Esterase Negative (NEG) Urine RBC 1-2 /HPF (0-2) Urine WBC 1-4 /HPF (0-4) Urine Squamous Epithelial Cells Mod /LPF Urine Bacteria 0 /HPF (0-FEW) Urine Opiates Screen Neg (NEG) Urine Methadone Screen Neg (NEG) Urine Barbiturates Neg (NEG) Urine Phencyclidine Screen Neg (NEG) Urine Amphetamine/Methamphetamine Neg (NEG) Urine Benzodiazepines Screen Neg (NEG) Urine Cocaine Screen Neg (NEG) Urine Cannabinoids Screen Neg (NEG) Urine Ethyl Alcohol Neg (NEG) White Blood Count 8.9 x10^3/uL (4.0-11.0) 8.0 x10^3/uL (4.0-11.0) Red Blood Count 5.08 x10^6/uL (3.50-5.40) 4.66 x10^6/uL (3.50-5.40) Hemoglobin 13.6 g/dL (12.0-15.5) 12.6 g/dL (12.0-15.5) Hematocrit 43.0 % (36.0-47.0) 39.4 % (36.0-47.0) Mean Corpuscular Volume 85 fL (79-100) 84 fL (79-100) Mean Corpuscular Hemoglobin 27 pg (25-35) 27 pg (25-35) Mean Corpuscular Hemoglobin Concent 32 g/dL (31-37) 32 g/dL (31-37) Red Cell Distribution Width 17.2 % (11.5-14.5) 16.6 % (11.5-14.5) Platelet Count 255 x10^3/uL (140-400) 248 x10^3/uL (140-400) Neutrophils (%) (Auto) 61 % (31-73) 65 % (31-73) Lymphocytes (%) (Auto) 29 % (24-48) 24 % (24-48) Monocytes (%) (Auto) 8 % (0-9) 9 % (0-9) Eosinophils (%) (Auto) 1 % (0-3) 2 % (0-3) Basophils (%) (Auto) 1 % (0-3) 1 % (0-3) Neutrophils # (Auto) 5.4 x10^3uL (1.8-7.7) 5.1 x10^3uL (1.8-7.7) Lymphocytes # (Auto) 2.6 x10^3/uL (1.0-4.8) 1.9 x10^3/uL (1.0-4.8) Monocytes # (Auto) 0.7 x10^3/uL (0.0-1.1) 0.7 x10^3/uL (0.0-1.1) Eosinophils # (Auto) 0.1 x10^3/uL (0.0-0.7) 0.1 x10^3/uL (0.0-0.7) Basophils # (Auto) 0.1 x10^3/uL (0.0-0.2) 0.1 x10^3/uL (0.0-0.2) Sodium Level 141 mmol/L (136-145) 140 mmol/L (136-145) Potassium Level 3.5 mmol/L (3.5-5.1) 3.2 mmol/L (3.5-5.1) Chloride Level 101 mmol/L (98-107) 102 mmol/L (98-107) Carbon Dioxide Level 29 mmol/L (21-32) 30 mmol/L (21-32) Anion Gap 11 (6-14) 8 (6-14) Blood Urea Nitrogen 24 mg/dL (7-20) 24 mg/dL (7-20) Creatinine 1.4 mg/dL (0.6-1.0) 1.5 mg/dL (0.6-1.0) Estimated GFR (Cockcroft-Gault) 43.2 39.9 BUN/Creatinine Ratio 17 (6-20) Glucose Level 100 mg/dL (70-99) 92 mg/dL (70-99) Calcium Level 9.1 mg/dL (8.5-10.1) 8.4 mg/dL (8.5-10.1) Magnesium Level 2.1 mg/dL (1.8-2.4) Total Bilirubin 0.4 mg/dL (0.2-1.0) Aspartate Amino Transf (AST/SGOT) 21 U/L (15-37) Alanine Aminotransferase (ALT/SGPT) 16 U/L (14-59) Alkaline Phosphatase 80 U/L (46-116) Creatine Kinase 78 U/L (26-192) Creatine Kinase MB (Mass) 0.9 ng/mL (0.0-3.6) Creatine Kinase MB Relative Index 1.2 % (0-4) Troponin I Quantitative < 0.017 ng/mL (0.000-0.055) YX-Pmc-Z-Type Natriuretic Peptide 227 pg/mL (0-449) Total Protein 7.8 g/dL (6.4-8.2) Albumin 3.6 g/dL (3.4-5.0) Albumin/Globulin Ratio 0.9 (1.0-1.7) Ethyl Alcohol Level < 10 mg/dL (0-10) Triglycerides Level 102 mg/dL (0-150) Cholesterol Level 162 mg/dL (0-200) LDL Cholesterol, Calculated 75 mg/dL (0-100) VLDL Cholesterol, Calculated 20 mg/dL (0-40) Non-HDL Cholesterol Calculated 95 mg/dL (0-129) HDL Cholesterol 67 mg/dL (40-60) Cholesterol/HDL Ratio 2.4 Thyroid Stimulating Hormone (TSH) 0.433 uIU/mL (0.358-3.74) Laboratory Tests Test 02/26/17 03:00 White Blood Count 8.0 x10^3/uL (4.0-11.0) Red Blood Count 4.66 x10^6/uL (3.50-5.40) Hemoglobin 12.6 g/dL (12.0-15.5) Hematocrit 39.4 % (36.0-47.0) Mean Corpuscular Volume 84 fL (79-100) Mean Corpuscular Hemoglobin 27 pg (25-35) Mean Corpuscular Hemoglobin Concent 32 g/dL (31-37) Red Cell Distribution Width 16.6 % (11.5-14.5) Platelet Count 248 x10^3/uL (140-400) Neutrophils (%) (Auto) 65 % (31-73) Lymphocytes (%) (Auto) 24 % (24-48) Monocytes (%) (Auto) 9 % (0-9) Eosinophils (%) (Auto) 2 % (0-3) Basophils (%) (Auto) 1 % (0-3) Neutrophils # (Auto) 5.1 x10^3uL (1.8-7.7) Lymphocytes # (Auto) 1.9 x10^3/uL (1.0-4.8) Monocytes # (Auto) 0.7 x10^3/uL (0.0-1.1) Eosinophils # (Auto) 0.1 x10^3/uL (0.0-0.7) Basophils # (Auto) 0.1 x10^3/uL (0.0-0.2) Sodium Level 140 mmol/L (136-145) Potassium Level 3.2 mmol/L (3.5-5.1) Chloride Level 102 mmol/L (98-107) Carbon Dioxide Level 30 mmol/L (21-32) Anion Gap 8 (6-14) Blood Urea Nitrogen 24 mg/dL (7-20) Creatinine 1.5 mg/dL (0.6-1.0) Estimated GFR (Cockcroft-Gault) 39.9 Glucose Level 92 mg/dL (70-99) Calcium Level 8.4 mg/dL (8.5-10.1) Triglycerides Level 102 mg/dL (0-150) Cholesterol Level 162 mg/dL (0-200) LDL Cholesterol, Calculated 75 mg/dL (0-100) VLDL Cholesterol, Calculated 20 mg/dL (0-40) Non-HDL Cholesterol Calculated 95 mg/dL (0-129) HDL Cholesterol 67 mg/dL (40-60) Cholesterol/HDL Ratio 2.4 Thyroid Stimulating Hormone (TSH) 0.433 uIU/mL (0.358-3.74) Medications Current Medications Amlodipine Besylate (Norvasc) 5 mg 1X ONCE PO Last administered on 02/25/17t 14:26; Start 02/25/17 at 14:15; Stop 02/25/17 at 14:16; Status DC Ondansetron HCl (Zofran) 4 mg PRN Q8HRS PRN IV NAUSEA/VOMITING; Start 02/25/17 at 15:45; Stop 02/25/17 at 15:47; Status DC Acetaminophen (Tylenol) 650 mg PRN Q4HRS PRN PO FEVER; Start 02/25/17 at 15:45 ; Stop 02/26/17 at 15:44 Ondansetron HCl (Zofran) 4 mg PRN Q6HRS PRN IV NAUSEA/VOMITING; Start 02/25/17 at 16:00; Stop 02/26/17 at 15:59 Labetalol HCl (Normodyne) 10 mg PRN Q2HR PRN IVP HYPERTENSION, SEE COMMENTS; Start 02/25/17 at 16:00 Acetaminophen/ Hydrocodone Bitart (Lortab 5/325) 1 tab PRN Q4HRS PRN PO PAIN; Start 02/25/17 at 16:00 Diphenhydramine HCl (Benadryl) 25 mg PRN QHS PRN PO INSOMNIA; Start 02/25/17 at 16:00 Sodium Chloride 1,000 ml @ 100 mls/hr 1X ONCE IV ; Start 02/26/17 at 10:30; Stop 02/26/17 at 20:29; Status Cancel Amlodipine Besylate (Norvasc) 5 mg DAILY PO Last administered on 02/26/17 11: 53; Start 02/26/17 at 10:30; Stop 02/26/17 at 15:28; Status DC Potassium Chloride (Klor-Con) 40 meq 1X ONCE PO Last administered on 11:53; Start 02/26/17 at 10:30; Stop 02/26/17 at 10:31; Status DC Multivitamins 10 ml/Thiamine HCl 100 mg/Folic Acid 1 mg/Sodium Chloride 1,011.2 ml @ 100 mls/ hr 1X ONCE IV Last administered on 02/26/17 11:54; Start 02/26 at 10:45; Stop 02/26/17 at 20:51 Potassium Chloride (Klor-Con) 40 meq 1X ONCE PO ; Start 02/26/17 at 11:00; Stop 02/26/17 at 11:01; Status DC Amlodipine Besylate (Norvasc) 10 mg DAILY PO ; Start 02/27/17 at 09:00 Amlodipine Besylate (Norvasc) 5 mg 1X ONCE PO ; Start 02/26/17 at 15:30; Stop 02/26/17 at 15:31; Status DC Vitals/I & O Vital Sign - Last 24 Hours 02/25/17 02/25/17 02/25/17 02/25/17 16:24 19:00 20:00 23:00 Temp 98.4 97.5 98.1 98.4 97.5 98.1 Pulse 86 92 87 Resp 19 18 18 B/P (MAP) 164/81 (108) 165/97 (119) 166/83 (110) Pulse Ox 96 98 95 O2 Delivery Room Air Room Air Room Air Room Air 02/26/17 02/26/17 02/26/17 02/26/17 03:00 07:00 08:00 11:00 Temp 97.9 98.1 96.6 97.9 98.1 96.6 Pulse 79 69 67 Resp 18 20 20 B/P (MAP) 155/79 (104) 146/68 (94) 162/76 (104) Pulse Ox 94 98 96 O2 Delivery Room Air Room Air Room Air Room Air 02/26/17 02/26/17 11:53 14:39 Temp 97.9 97.9 Pulse 89 71 Resp 19 B/P (MAP) 182/108 144/64 (90) Pulse Ox 96 O2 Delivery Room Air Intake and Output 02/25/17 02/25/17 02/26/17 15:00 23:00 07:00 Intake Total 220 ml 0 ml Balance 220 ml 0 ml NISSA JORDAN III DO Feb 26, 2017 15:44
[2017-02-26] MEDS ORDERED: AMLO5TAB2 PO (16:38)
[2017-02-26] MEDS ORDERED: LEVO50TA PO (16:38)
[2017-02-26 19:00] VITALS: BP 148/72
[2017-02-26 23:00] VITALS: BP 134/76
[2017-02-27 03:00] VITALS: BP 144/56
[2017-02-27 05:43] LABS: BASO # 0.1 x10^3/uL (0.0-0.2); BASO % 1 % (0-3); EOS % 1 % (0-3); HEMATOCRIT 38.8 % (36.0-47.0); HEMOGLOBIN 12.2 g/dL (12.0-15.5); LYMPH # 2.2 x10^3/uL (1.0-4.8); LYMPH % 29 % (24-48); MEAN CORPUSCULAR HEMOGLOBIN 27 pg (25-35); MEAN CORPUSCULAR HGB CONC 31 g/dL (31-37); MEAN CORPUSCULAR VOLUME 85 fL (79-100); MONO % 9 % (0-9); NEUT % 61 % (31-73); PLATELET COUNT 247 x10^3/uL (140-400); RED BLOOD COUNT 4.56 x10^6/uL (3.50-5.40); RED CELL DISTRIBUTION WIDTH 16.8 % (11.5-14.5); WHITE BLOOD COUNT 7.7 x10^3/uL (4.0-11.0)
[2017-02-27 06:12] LABS: CALCIUM 8.2 mg/dL (8.5-10.1); CREATININE 1.3 mg/dL (0.6-1.0); GFR 47.1; POTASSIUM 3.6 mmol/L (3.5-5.1)
[2017-02-27 07:00] VITALS: BP 170/95
[2017-02-27] MEDS ORDERED: amLODIPine BESYLATE 10 MG TABLET PO SCH (09:00)
[2017-02-27 11:02] VITALS: BP 135/55
[2017-02-27] MEDS ORDERED: LEVOTHYROXINE 50 MCG TABLET PO SCH (12:00)
[2017-02-27] MEDS ORDERED: AMLO10TA2 PO (12:39)
--- NOTE | 2017-02-27 13:04 | PDOC ---
CARDIO Progress Notes Date and Time Date of Service 02/27/2017 Time of Evaluation 1230 Subjective Subjective: No Chest Pain, No shortness of breath, No Palpitations Vitals Vitals Vital Signs Date Time Temp Pulse Resp B/P (MAP) Pulse Ox O2 Delivery O2 Flow Rate FiO2 02/27/17 11:02 97.7 73 20 135/55 (81) 96 Room Air 97.7 Weight Weight [ ] Input and Output Intake and Output Intake and Output 02/27/17 06:59 Intake Total 580 ml Balance 580 ml Intake Oral 580 ml # Voids 4 Laboratory Labs Laboratory Tests Test 02/27/17 04:00 02/27/17 04:10 White Blood Count 7.7 x10^3/uL (4.0-11.0) Red Blood Count 4.56 x10^6/uL (3.50-5.40) Hemoglobin 12.2 g/dL (12.0-15.5) Hematocrit 38.8 % (36.0-47.0) Mean Corpuscular Volume 85 fL (79-100) Mean Corpuscular Hemoglobin 27 pg (25-35) Mean Corpuscular Hemoglobin Concent 31 g/dL (31-37) Red Cell Distribution Width 16.8 % (11.5-14.5) Platelet Count 247 x10^3/uL (140-400) Neutrophils (%) (Auto) 61 % (31-73) Lymphocytes (%) (Auto) 29 % (24-48) Monocytes (%) (Auto) 9 % (0-9) Eosinophils (%) (Auto) 1 % (0-3) Basophils (%) (Auto) 1 % (0-3) Neutrophils # (Auto) 4.7 x10^3uL (1.8-7.7) Lymphocytes # (Auto) 2.2 x10^3/uL (1.0-4.8) Monocytes # (Auto) 0.7 x10^3/uL (0.0-1.1) Eosinophils # (Auto) 0.1 x10^3/uL (0.0-0.7) Basophils # (Auto) 0.1 x10^3/uL (0.0-0.2) Sodium Level 142 mmol/L (136-145) Potassium Level 3.6 mmol/L (3.5-5.1) Chloride Level 105 mmol/L (98-107) Carbon Dioxide Level 27 mmol/L (21-32) Anion Gap 10 (6-14) Blood Urea Nitrogen 21 mg/dL (7-20) Creatinine 1.3 mg/dL (0.6-1.0) Estimated GFR (Cockcroft-Gault) 47.1 Glucose Level 84 mg/dL (70-99) Calcium Level 8.2 mg/dL (8.5-10.1) Physical Exam HEENT: Neck Supple W Full Motion Chest: Symmetric LUNGS: Clear to Auscultation Heart: S1S2, RRR (off tele per staff no ectopies) Abdomen: Soft N/T Extremities: No Calf Tenderness Neurology: alert, oriented, follow commands Assessment Assessment 1. Syncope vs encephalopathy: could be induced by ETOH with likely dehydration 2. Accelerated HTN: better 3. Alcoholism: 3-4 shots of vodka 4x weekly. Defer to PCP 4. Prerenal azotemia: stable 5. Hypokalemia: resolved 6. Hypothyroidism 7. Asymptomatic cinus bradycardia: episodes in the 40s no pauses. Pt reports that she has stopped aricept 8. Dementia 9. COPD Recommendations 1. TTE with normal wall motion and EF. Refused event monitor 2. Continue norvasc 3. Avoid AV niranjan blocking agents 4. Discussed ETOH cessation. (Supplied by outside friends) 5. Follow up in office in 4 weeks. YARI PEREA APRN Feb 27, 2017 13:04
--- NOTE | 2017-02-27 13:19 | PDOC ---
PROGRESS NOTES Chief Complaint Chief Complaint Syncope Hypothyroidism HTN COPD Dementia GERD Osteoarthritis History of Present Illness History of Present Illness Pt seen and examined at the bedside she denies any complaints today and was up and walking around her room, desires discharge Vitals Vitals Vital Signs Date Time Temp Pulse Resp B/P (MAP) Pulse Ox O2 Delivery O2 Flow Rate FiO2 02/27/17 11:02 97.7 73 20 135/55 (81) 96 Room Air 97.7 Physical Exam Physical Exam Eyes: Sclera anicteric, no conjunctival injection Neuro: [employer] II-XII grossly intact b/l General: Alert, Oriented X3, Cooperative, No acute distress Heart: Regular rate, Normal S1, Normal S2, Other (2/6 systolic murmur to LLS border) Lungs: Clear, Other (No wheezes or crackles) Abdomen: Normal bowel sounds, Soft, No tenderness Extremities: No cyanosis, No edema Skin: No breakdown, No significant lesion Labs LABS Laboratory Tests Test 02/27/17 04:00 02/27/17 04:10 White Blood Count 7.7 x10^3/uL (4.0-11.0) Red Blood Count 4.56 x10^6/uL (3.50-5.40) Hemoglobin 12.2 g/dL (12.0-15.5) Hematocrit 38.8 % (36.0-47.0) Mean Corpuscular Volume 85 fL (79-100) Mean Corpuscular Hemoglobin 27 pg (25-35) Mean Corpuscular Hemoglobin Concent 31 g/dL (31-37) Red Cell Distribution Width 16.8 % (11.5-14.5) Platelet Count 247 x10^3/uL (140-400) Neutrophils (%) (Auto) 61 % (31-73) Lymphocytes (%) (Auto) 29 % (24-48) Monocytes (%) (Auto) 9 % (0-9) Eosinophils (%) (Auto) 1 % (0-3) Basophils (%) (Auto) 1 % (0-3) Neutrophils # (Auto) 4.7 x10^3uL (1.8-7.7) Lymphocytes # (Auto) 2.2 x10^3/uL (1.0-4.8) Monocytes # (Auto) 0.7 x10^3/uL (0.0-1.1) Eosinophils # (Auto) 0.1 x10^3/uL (0.0-0.7) Basophils # (Auto) 0.1 x10^3/uL (0.0-0.2) Sodium Level 142 mmol/L (136-145) Potassium Level 3.6 mmol/L (3.5-5.1) Chloride Level 105 mmol/L (98-107) Carbon Dioxide Level 27 mmol/L (21-32) Anion Gap 10 (6-14) Blood Urea Nitrogen 21 mg/dL (7-20) Creatinine 1.3 mg/dL (0.6-1.0) Estimated GFR (Cockcroft-Gault) 47.1 Glucose Level 84 mg/dL (70-99) Calcium Level 8.2 mg/dL (8.5-10.1) Review of Systems Review of Systems GEN: Denies fever, chills or sweats CV: Denies chest pain Resp: Denies shortness of air, cough GI: Denies N/V Assessment and Plan Assessmemt and Plan Problems Medical Problems: (1) Accelerated hypertension Status: Acute (2) Syncope Status: Acute Assessment: Syncope Hypothyroidism HTN COPD Dementia GERD Osteoarthritis Plan: Possible discharge today, if okay with cardiology Appreciate subspecialty input Continue home medications Continue PT/OT Recheck labs in am F/u with PCP in 1 week Problems: Comment Review of Relevant I have reviewed the following items maged (where applicable) has been applied. Labs Laboratory Tests Test 02/25/17 14:15 02/26/17 03:00 02/27/17 04:00 02/27/17 04:10 White Blood Count 8.9 x10^3/uL (4.0-11.0) 8.0 x10^3/uL (4.0-11.0) 7.7 x10^3/uL (4.0-11.0) Red Blood Count 5.08 x10^6/uL (3.50-5.40) 4.66 x10^6/uL (3.50-5.40) 4.56 x10^6/uL (3.50-5.40) Hemoglobin 13.6 g/dL (12.0-15.5) 12.6 g/dL (12.0-15.5) 12.2 g/dL (12.0-15.5) Hematocrit 43.0 % (36.0-47.0) 39.4 % (36.0-47.0) 38.8 % (36.0-47.0) Mean Corpuscular Volume 85 fL (79-100) 84 fL (79-100) 85 fL (79-100) Mean Corpuscular Hemoglobin 27 pg (25-35) 27 pg (25-35) 27 pg (25-35) Mean Corpuscular Hemoglobin Concent 32 g/dL (31-37) 32 g/dL (31-37) 31 g/dL (31-37) Red Cell Distribution Width 17.2 % (11.5-14.5) 16.6 % (11.5-14.5) 16.8 % (11.5-14.5) Platelet Count 255 x10^3/uL (140-400) 248 x10^3/uL (140-400) 247 x10^3/uL (140-400) Neutrophils (%) (Auto) 61 % (31-73) 65 % (31-73) 61 % (31-73) Lymphocytes (%) (Auto) 29 % (24-48) 24 % (24-48) 29 % (24-48) Monocytes (%) (Auto) 8 % (0-9) 9 % (0-9) 9 % (0-9) Eosinophils (%) (Auto) 1 % (0-3) 2 % (0-3) 1 % (0-3) Basophils (%) (Auto) 1 % (0-3) 1 % (0-3) 1 % (0-3) Neutrophils # (Auto) 5.4 x10^3uL (1.8-7.7) 5.1 x10^3uL (1.8-7.7) 4.7 x10^3uL (1.8-7.7) Lymphocytes # (Auto) 2.6 x10^3/uL (1.0-4.8) 1.9 x10^3/uL (1.0-4.8) 2.2 x10^3/uL (1.0-4.8) Monocytes # (Auto) 0.7 x10^3/uL (0.0-1.1) 0.7 x10^3/uL (0.0-1.1) 0.7 x10^3/uL (0.0-1.1) Eosinophils # (Auto) 0.1 x10^3/uL (0.0-0.7) 0.1 x10^3/uL (0.0-0.7) 0.1 x10^3/uL (0.0-0.7) Basophils # (Auto) 0.1 x10^3/uL (0.0-0.2) 0.1 x10^3/uL (0.0-0.2) 0.1 x10^3/uL (0.0-0.2) Sodium Level 141 mmol/L (136-145) 140 mmol/L (136-145) 142 mmol/L (136-145) Potassium Level 3.5 mmol/L (3.5-5.1) 3.2 mmol/L (3.5-5.1) 3.6 mmol/L (3.5-5.1) Chloride Level 101 mmol/L (98-107) 102 mmol/L (98-107) 105 mmol/L (98-107) Carbon Dioxide Level 29 mmol/L (21-32) 30 mmol/L (21-32) 27 mmol/L (21-32) Anion Gap 11 (6-14) 8 (6-14) 10 (6-14) Blood Urea Nitrogen 24 mg/dL (7-20) 24 mg/dL (7-20) 21 mg/dL (7-20) Creatinine 1.4 mg/dL (0.6-1.0) 1.5 mg/dL (0.6-1.0) 1.3 mg/dL (0.6-1.0) Estimated GFR (Cockcroft-Gault) 43.2 39.9 47.1 BUN/Creatinine Ratio 17 (6-20) Glucose Level 100 mg/dL (70-99) 92 mg/dL (70-99) 84 mg/dL (70-99) Calcium Level 9.1 mg/dL (8.5-10.1) 8.4 mg/dL (8.5-10.1) 8.2 mg/dL (8.5-10.1) Magnesium Level 2.1 mg/dL (1.8-2.4) Total Bilirubin 0.4 mg/dL (0.2-1.0) Aspartate Amino Transf (AST/SGOT) 21 U/L (15-37) Alanine Aminotransferase (ALT/SGPT) 16 U/L (14-59) Alkaline Phosphatase 80 U/L (46-116) Creatine Kinase 78 U/L (26-192) Creatine Kinase MB (Mass) 0.9 ng/mL (0.0-3.6) Creatine Kinase MB Relative Index 1.2 % (0-4) Troponin I Quantitative < 0.017 ng/mL (0.000-0.055) ZO-Dss-M-Type Natriuretic Peptide 227 pg/mL (0-449) Total Protein 7.8 g/dL (6.4-8.2) Albumin 3.6 g/dL (3.4-5.0) Albumin/Globulin Ratio 0.9 (1.0-1.7) Ethyl Alcohol Level < 10 mg/dL (0-10) Triglycerides Level 102 mg/dL (0-150) Cholesterol Level 162 mg/dL (0-200) LDL Cholesterol, Calculated 75 mg/dL (0-100) VLDL Cholesterol, Calculated 20 mg/dL (0-40) Non-HDL Cholesterol Calculated 95 mg/dL (0-129) HDL Cholesterol 67 mg/dL (40-60) Cholesterol/HDL Ratio 2.4 Thyroid Stimulating Hormone (TSH) 0.433 uIU/mL (0.358-3.74) Laboratory Tests Test 02/27/17 04:00 02/27/17 04:10 White Blood Count 7.7 x10^3/uL (4.0-11.0) Red Blood Count 4.56 x10^6/uL (3.50-5.40) Hemoglobin 12.2 g/dL (12.0-15.5) Hematocrit 38.8 % (36.0-47.0) Mean Corpuscular Volume 85 fL (79-100) Mean Corpuscular Hemoglobin 27 pg (25-35) Mean Corpuscular Hemoglobin Concent 31 g/dL (31-37) Red Cell Distribution Width 16.8 % (11.5-14.5) Platelet Count 247 x10^3/uL (140-400) Neutrophils (%) (Auto) 61 % (31-73) Lymphocytes (%) (Auto) 29 % (24-48) Monocytes (%) (Auto) 9 % (0-9) Eosinophils (%) (Auto) 1 % (0-3) Basophils (%) (Auto) 1 % (0-3) Neutrophils # (Auto) 4.7 x10^3uL (1.8-7.7) Lymphocytes # (Auto) 2.2 x10^3/uL (1.0-4.8) Monocytes # (Auto) 0.7 x10^3/uL (0.0-1.1) Eosinophils # (Auto) 0.1 x10^3/uL (0.0-0.7) Basophils # (Auto) 0.1 x10^3/uL (0.0-0.2) Sodium Level 142 mmol/L (136-145) Potassium Level 3.6 mmol/L (3.5-5.1) Chloride Level 105 mmol/L (98-107) Carbon Dioxide Level 27 mmol/L (21-32) Anion Gap 10 (6-14) Blood Urea Nitrogen 21 mg/dL (7-20) Creatinine 1.3 mg/dL (0.6-1.0) Estimated GFR (Cockcroft-Gault) 47.1 Glucose Level 84 mg/dL (70-99) Calcium Level 8.2 mg/dL (8.5-10.1) Medications Current Medications Amlodipine Besylate (Norvasc) 5 mg 1X ONCE PO Last administered on 02/25/17t 14:26; Start 02/25/17 at 14:15; Stop 02/25/17 at 14:16; Status DC Ondansetron HCl (Zofran) 4 mg PRN Q8HRS PRN IV NAUSEA/VOMITING; Start 02/25/17 at 15:45; Stop 02/25/17 at 15:47; Status DC Acetaminophen (Tylenol) 650 mg PRN Q4HRS PRN PO FEVER; Start 02/25/17 at 15:45 ; Stop 02/26/17 at 15:44; Status DC Ondansetron HCl (Zofran) 4 mg PRN Q6HRS PRN IV NAUSEA/VOMITING; Start 02/25/17 at 16:00; Stop 02/26/17 at 15:59; Status DC Labetalol HCl (Normodyne) 10 mg PRN Q2HR PRN IVP HYPERTENSION, SEE COMMENTS; Start 02/25/17 at 16:00 Acetaminophen/ Hydrocodone Bitart (Lortab 5/325) 1 tab PRN Q4HRS PRN PO PAIN; Start 02/25/17 at 16:00 Diphenhydramine HCl (Benadryl) 25 mg PRN QHS PRN PO INSOMNIA Last administered on 02/26/17 21:45; Start 02/25/17 at 16:00 Sodium Chloride 1,000 ml @ 100 mls/hr 1X ONCE IV ; Start 02/26/17 at 10:30; Stop 02/26/17 at 20:29; Status Cancel Amlodipine Besylate (Norvasc) 5 mg DAILY PO Last administered on 02/26/17 11: 53; Start 02/26/17 at 10:30; Stop 02/26/17 at 15:28; Status DC Potassium Chloride (Klor-Con) 40 meq 1X ONCE PO Last administered on 11:53; Start 02/26/17 at 10:30; Stop 02/26/17 at 10:31; Status DC Multivitamins 10 ml/Thiamine HCl 100 mg/Folic Acid 1 mg/Sodium Chloride 1,011.2 ml @ 100 mls/ hr 1X ONCE IV Last administered on 02/26/17 11:54; Start 02/26 at 10:45; Stop 02/26/17 at 20:51; Status DC Potassium Chloride (Klor-Con) 40 meq 1X ONCE PO ; Start 02/26/17 at 11:00; Stop 02/26/17 at 11:01; Status DC Amlodipine Besylate (Norvasc) 10 mg DAILY PO Last administered on 02/27/17 08: 32; Start 02/27/17 at 09:00 Amlodipine Besylate (Norvasc) 5 mg 1X ONCE PO Last administered on 02/26/17 16:20; Start 02/26/17 at 15:30; Stop 02/26/17 at 15:31; Status DC Levothyroxine Sodium (Synthroid) 50 mcg DAILY07 PO Last administered on 11:45; Start 02/27/17 at 12:00 Active Scripts Active Reported Amlodipine Besylate 10 Mg Tablet 10 Mg PO DAILY Synthroid (Levothyroxine Sodium) 50 Mcg Tablet 1 Tab PO DAILY Vitals/I & O Vital Sign - Last 24 Hours 02/26/17 02/26/17 02/26/17 02/26/17 14:39 16:20 19:00 20:00 Temp 97.9 97.7 97.9 97.7 Pulse 71 87 78 Resp 19 20 B/P (MAP) 144/64 (90) 158/86 148/72 (97) Pulse Ox 96 94 O2 Delivery Room Air Room Air Room Air 02/26/17 02/26/17 02/27/17 02/27/17 23:00 23:51 03:00 07:00 Temp 100.4 98.1 98.1 98.2 100.4 98.1 98.1 98.2 Pulse 73 63 85 Resp 20 20 20 B/P (MAP) 134/76 (95) 144/56 (85) 170/95 (120) Pulse Ox 93 98 93 O2 Delivery Room Air Room Air Room Air 02/27/17 02/27/17 02/27/17 08:00 08:32 11:02 Temp 97.7 97.7 Pulse 85 73 Resp 20 B/P (MAP) 170/95 135/55 (81) Pulse Ox 96 O2 Delivery Room Air Room Air Intake and Output 02/26/17 02/26/17 02/27/17 14:59 22:59 06:59 Intake Total 180 ml 400 ml Balance 180 ml 400 ml NISSA JORDAN III DO Feb 27, 2017 13:19
--- NOTE | 2017-03-07 12:41 | DS ---
DATE OF DISCHARGE: 02/27/2017 ADMISSION DIAGNOSIS: Syncope. DISCHARGE DIAGNOSES: Resolving syncope. HOSPITAL COURSE: The patient is a pleasant 86-year-old female who presented with syncope. She was admitted. We consulted Cardiology. We followed her cardiac rhythms with cardiac monitoring, did some physical therapy and occupational therapy, held any negative chronotropic agents, but overall she did well. We discharged her to home. DISPOSITION: Home. ACTIVITY: As tolerated. DIET: Low sodium. MEDICATIONS: Please see the MRAD. TOTAL TIME: 34 minutes. NISSA JORDAN DO DR: RASHAUN/azael JOB#: [id number] / [id number]
== END 2017-02-27 13:55 | disposition home or self-care (01) | DRG 74 ==
LOC: ER 12:41 → 5 NORTH 14:55
PROVIDERS: ADMIT Internal Medicine; ATTEND Internal Medicine
DX: G90.8 Other disorders of autonomic nervous system (principal); I11.9 Hypertensive heart disease without heart failure; F03.90 Unspecified dementia, unspecified severity, without behavioral disturbance, psychotic disturbance, mood disturbance, and anxiety; M41.9 Scoliosis, unspecified; J44.9 Chronic obstructive pulmonary disease, unspecified; F10.229 Alcohol dependence with intoxication, unspecified; E87.6 Hypokalemia; E04.9 Nontoxic goiter, unspecified; E89.0 Postprocedural hypothyroidism; K21.9 Gastro-esophageal reflux disease without esophagitis; M19.90 Unspecified osteoarthritis, unspecified site; Z96.653 Presence of artificial knee joint, bilateral; I70.0 Atherosclerosis of aorta; Y90.0 Blood alcohol level of less than 20 mg/100 ml; Z90.710 Acquired absence of both cervix and uterus
CPT/HCPCS: 36415; 70450; 71010; 80048; 80053; 80061; 80307; 81001; 82553; 83735; 83880; 84443; 84484; 85025; 93005; 93306; G0480; J7030; Q0163; 99285-25; G0479